=== PATIENT | female | born 1995 | race Caucasian/White ===

== ENCOUNTER 2017-08-14 02:24 | Emergency (ER) | payer MEDICAID ==
[~2017-08-14 02:24] MED LIST changes: -ABILIF5PT PO
[2017-08-14] MEDS ORDERED: ABILIF5PT PO (02:36)
[2017-08-14] MEDS ORDERED: METOPROLOL TART 5 MG/5 ML VIAL IVP ONE (02:40)
[2017-08-14] MEDS ORDERED: LORazepam 2 MG/ML VIAL IVP ONE (02:40)
--- NOTE | 2017-08-14 02:44 | EKG ---
FACILITY: [facility] - [place] PATIENT NAME: LIZBETH BARAJAS : [id number] MR: [id number] V: [id number] EXAM DATE: ORDERING PHYSICIAN: BRYN LAMB TECHNOLOGIST: Sanket Wood Reason : Blood Pressure : / mmHG Vent. Rate : 117 BPM Atrial Rate : 117 BPM P-R Int : 130 ms QRS Dur : 084 ms QT Int : 340 ms P-R-T Axes : 046 026 023 degrees QTc Int : 474 ms Sinus tachycardia Possible Inferior infarct , age undetermined Abnormal ECG No previous ECGs available Confirmed by AMERICO GUSTAFSON ([id number]) on 08/14/2017 6:35:38 AM Referred By: Confirmed By:AMERICO GUSTAFSON
--- NOTE | 2017-08-14 03:15 | ER Report ---
History and Physical Time Seen By MD: 02:27 Hx. of Stated Complaint: PATIENT STARTED FEELING LIKE SHE WAS HAVING IRREGULAR HEART RATE AND FLUTTERING IN HER CHEST THAT STARTED AROUND 0000. HPI/ROS CHIEF COMPLAINT: Fast heart rate HISTORY OF PRESENT ILLNESS: 22-year-old female with a history of autism was brought in by EMS from home complaining of fast heart rate since midnight. She notes palpitations and feels out of sorts. She denies being under stress or recent illness. She's had no nausea or vomiting, although she admits she vomited yesterday. She is on numerous psychiatric medications. She notes no diaphoresis, nausea, fever, chills, headache or visual changes. She denies leg swelling or calf pain. Patient does take control pills. REVIEW OF SYSTEMS: Respiratory: No cough, no dyspnea. Cardiovascular: No chest pain, no palpitations. Gastrointestinal: No vomiting, no abdominal pain. Musculoskeletal: No back pain. Allergies: Coded Allergies: No Known Drug Allergies (Unverified , 08/14/17) Home Meds Reported Medications Aripiprazole (ABILIFY) 5 Mg Tablet, 5 MG PO QDAY, #10 TAB 08/14/17 Omeprazole Magnesium (PRILOSEC OTC) 20 Mg Tablet.dr, 1 TAB PO QDAY, TAB 08/07/15 Norgestimate-Ethinyl Estradiol (ORTHO TRI-CYCLEN LO) 1 Each Tablet, 1 EACH PO DAILY 08/07/15 Risperidone (RISPERDAL) 2 Mg Tablet, 1 MG PO DAILY 08/07/15 Citalopram Hydrobromide (CELEXA) 40 Mg Tablet, 40 MG PO QDAY, #5 TAB 08/07/15 Hx Smoking: No Exposure to Second Hand Smoke?: Yes (PARENTS) Hx Substance Use Disorder: No Hx Alcohol Use: No Constitutional Vital Sign - Last 24 Hours 08/14/17 08/14/17 08/14/17 08/14/17 02:27 02:34 02:39 02:44 Temp 99.2 Pulse 120 120 116 111 Resp 19 18 13 6 B/P (MAP) 136/73 Pulse Ox 96 96 95 95 O2 Delivery Room Air 08/14/17 08/14/17 08/14/17 08/14/17 02:49 02:54 02:59 03:00 Pulse 112 131 113 Resp 11 10 14 B/P (MAP) 132/78 (96) Pulse Ox 96 95 08/14/17 08/14/17 08/14/17 08/14/17 03:04 03:09 03:14 03:24 Pulse 124 126 113 ??? Resp 13 32 10 Pulse Ox 94 92 92 94 08/14/17 08/14/17 08/14/17 08/14/17 03:29 03:30 03:44 03:49 Pulse 97 93 97 Resp 18 17 17 B/P (MAP) 124/73 (90) 08/14/17 08/14/17 08/14/17 08/14/17 03:54 03:59 04:00 04:09 Pulse 93 93 96 Resp 22 24 18 B/P (MAP) 133/68 (89) Physical Exam General Appearance: The patient is alert, has no immediate need for airway protection and no current signs of toxicity.. Vital signs stable, tachycardic to 120s. Vital signs stable, afebrile, pulse ox normal HEENT: Pupils equal and round no injection. TMs normal, oropharynx without redness or exudate Respiratory: Chest is non tender, lungs are clear to auscultation. Cardiac: regular rate and rhythm, no murmur Gastrointestinal: Abdomen is soft and non tender, no masses, bowel sounds normal. Musculoskeletal: Neck: Neck is supple and non tender. Extremities have full range of motion and are non tender. Skin: No rashes or lesions. DIFFERENTIAL DIAGNOSIS: After history and physical exam differential diagnosis was considered for palpitations, tachycardia, anxiety, sympathomimetic use Medical Decision Making Data Points Result Diagram: 08/14/17 03108/14/17 0310 Laboratory Hematology Test 08/14/17 03:10 Red Blood Count 5.24 M/uL (4.17-5.56) Mean Corpuscular Volume 77.3 fL (80.0-96.0) Mean Corpuscular Hemoglobin 25.9 pg (26.0-33.0) Mean Corpuscular Hemoglobin Concent 33.5 g/dL (32.0-36.0) Red Cell Distribution Width 15.3 % (11.5-14.5) Mean Platelet Volume 7.7 fL (7.2-11.1) Neutrophils (%) (Auto) 61.7 % (39.4-72.5) Lymphocytes (%) (Auto) 29.2 % (17.6-49.6) Monocytes (%) (Auto) 7.0 % (4.1-12.4) Eosinophils (%) (Auto) 1.5 % (0.4-6.7) Basophils (%) (Auto) 0.6 % (0.3-1.4) Nucleated RBC Relative Count (auto) 0.0 /100WBC Neutrophils # (Auto) 7.0 K/uL (2.0-7.4) Lymphocytes # (Auto) 3.3 K/uL (1.3-3.6) Monocytes # (Auto) 0.8 K/uL (0.3-1.0) Eosinophils # (Auto) 0.2 K/uL (0.0-0.5) Basophils # (Auto) 0.1 K/uL (0.0-0.1) Nucleated RBC Absolute Count (auto) 0.01 K/uL D-Dimer Quantitative (PE/DVT) < 0.27 ug/ml (0-0.50) Sodium Level 137 mmol/L (137-145) Potassium Level 3.5 mmol/L (3.5-5.0) Chloride Level 102 mmol/L (98-107) Carbon Dioxide Level 23 mmol/L (22-31) Blood Urea Nitrogen 11 mg/dl (7-18) Creatinine 0.60 mg/dl (0.52-1.04) Glomerular Filtration Rate Calc > 60.0 Random Glucose 109 mg/dl (75-110) Calcium Level 8.8 mg/dl (8.4-10.2) Total Bilirubin 0.2 mg/dl (0.2-1.3) Aspartate Amino Transf (AST/SGOT) 16 U/L (0-35) Alanine Aminotransferase (ALT/SGPT) 37 U/L (0-56) Alkaline Phosphatase 128 U/L (0-126) Troponin I < 0.012 ng/ml Total Protein 7.4 gm/dl (6.3-8.2) Albumin 3.9 g/dl (3.5-5.0) Thyroid Stimulating Hormone (TSH) 5.75 uIU/ml (0.46-4.68) Chemistry Test 08/14/17 03:10 White Blood Count 11.4 k/uL (4.5-11.0) Red Blood Count 5.24 M/uL (4.17-5.56) Hemoglobin 13.6 g/dL (12.0-16.0) Hematocrit 40.5 % (34.0-47.0) Mean Corpuscular Volume 77.3 fL (80.0-96.0) Mean Corpuscular Hemoglobin 25.9 pg (26.0-33.0) Mean Corpuscular Hemoglobin Concent 33.5 g/dL (32.0-36.0) Red Cell Distribution Width 15.3 % (11.5-14.5) Platelet Count 317 K/uL (150-450) Mean Platelet Volume 7.7 fL (7.2-11.1) Neutrophils (%) (Auto) 61.7 % (39.4-72.5) Lymphocytes (%) (Auto) 29.2 % (17.6-49.6) Monocytes (%) (Auto) 7.0 % (4.1-12.4) Eosinophils (%) (Auto) 1.5 % (0.4-6.7) Basophils (%) (Auto) 0.6 % (0.3-1.4) Nucleated RBC Relative Count (auto) 0.0 /100WBC Neutrophils # (Auto) 7.0 K/uL (2.0-7.4) Lymphocytes # (Auto) 3.3 K/uL (1.3-3.6) Monocytes # (Auto) 0.8 K/uL (0.3-1.0) Eosinophils # (Auto) 0.2 K/uL (0.0-0.5) Basophils # (Auto) 0.1 K/uL (0.0-0.1) Nucleated RBC Absolute Count (auto) 0.01 K/uL D-Dimer Quantitative (PE/DVT) < 0.27 ug/ml (0-0.50) Glomerular Filtration Rate Calc > 60.0 Calcium Level 8.8 mg/dl (8.4-10.2) Total Bilirubin 0.2 mg/dl (0.2-1.3) Aspartate Amino Transf (AST/SGOT) 16 U/L (0-35) Alanine Aminotransferase (ALT/SGPT) 37 U/L (0-56) Alkaline Phosphatase 128 U/L (0-126) Troponin I < 0.012 ng/ml Total Protein 7.4 gm/dl (6.3-8.2) Albumin 3.9 g/dl (3.5-5.0) Thyroid Stimulating Hormone (TSH) 5.75 uIU/ml (0.46-4.68) Coagulation Test 08/14/17 03:10 D-Dimer Quantitative (PE/DVT) < 0.27 ug/ml EKG/Imaging EKG Interpretation 12 lead EK Rhythm: Sinus tachycardia, rate 117 [place]: normal QRS: ? Inferior Q waves in [address] segments: normal, no old EKGs for comparison ED Course/Re-evaluation Clinical Indication for ER IV: IV Access ED Course Patient was admitted to an examination room. H&P was done. The dental diagnoses was considered. Patient with palpitations and racing heart. She was brought in by EMS. She has sinus tachycardia on the monitor, rate of 120 bpm. She denies anxiety or stressors. She states she was getting ready for bed when the symptoms commenced. She's never had symptoms like this before. She denies caffeine or stimulants. She takes numerous psychiatric medications. Diagnostic evaluation is unremarkable. She is treated with IV Ativan and metoprolol 5 mg on observation. After one hour, her heart rate is in the 90s. She feels much better. She is advised to follow-up with her primary care physician next week. She is advised to continue all of her medications as prescribed. Decision to Disposition Date: Aug 14, 2017 Decision to Disposition Time: 03:25 Depart Departure Latest Vital Signs Vital Signs Date Time Temp Pulse Resp B/P (MAP) Pulse Ox O2 Delivery O2 Flow Rate FiO2 08/14/17 04:09 96 18 08/14/17 04:00 133/68 (89) 08/14/17 03:24 94 08/14/17 02:27 99.2 Room Air Impression: Primary Impression: Heart palpitations Additional Impression: Mood disorder Condition: Improved Disposition: HOME OR SELF-CARE Patient Instructions: Palpitations (ED) Additional Instructions: Follow-up with your primary care if unimproved in 3-5 days Problem Qualifiers BRYN LAMB DO Aug 14, 2017 03:15
[2017-08-14 03:26] LABS: PLATELET COUNT, AUTOMATED 317 K/uL (150-450)
[2017-08-14 04:00] VITALS: BP 133/68
== END 2017-08-14 04:22 | disposition home or self-care (01) ==
LOC: ER 02:26
DX: F39 Unspecified mood [affective] disorder (principal); R00.2 Palpitations
CPT/HCPCS: 36415; 84443; 84484; 85025; 85379; 93005; 96374; 96375; 99284; J2060; J3490; 82040; 82247; 82310; 82374; 82435; 82565; 82947; 84075; 84132; 84155; 84295; 84450; 84460; 84520

== ENCOUNTER → 2017-08-14 | Outpatient (CLI) | payer MEDICAID ==
[~2017-08-14] MED LIST: ABILIF5PT PO; CITA-157 PO; NORG1TAB96 PO; OMEP-218 PO; RISP-34 PO
== END ==
LOC: AMB 02:07
PROVIDERS: ATTEND Nurse Practitioner
DX: R00.0 Tachycardia, unspecified (principal); F41.9 Anxiety disorder, unspecified
CPT/HCPCS: A0425; A0427

== ENCOUNTER → 2017-08-23 | Outpatient (CLI) | payer MEDICAID ==
[~2017-08-23] MED LIST changes: +ABILIF5PT PO
--- NOTE | 2017-08-27 16:46 | RT HOLTER TEST ---
FACILITY: [facility] - [place] PATIENT NAME: LIZBETH BARAJAS : [id number] MR: [id number] V: [id number] EXAM DATE: ORDERING PHYSICIAN: ANN MARIE RIVERA TECHNOLOGIST: CLAUDIO Hook-up date: 2017-08-23 13:13:00 Duration: 47:43:00 Test Indications: PALPITATIONS Medications: N/A 367825 QRS complexes 1415 Ventricular ectopics which represent <1 % of total QRS comp. * Supraventricular ectopics which represent % of total QRS comp. * Paced QRS complexes which represent % of total QRS comp. VENTRICULAR ECTOPY 1407 Isolated 0 Bigeminal Cycles 4 Couplets 0 Runs 0 Beats in Runs * Beats LONGEST at * BPM at :: -- * Beats FASTEST at * BPM at :: -- SUPRAVENTRICULAR ECTOPY * Isolated * Couplets * Runs * Beats in Runs * Beats LONGEST at * BPM at :: -- * Beats FASTEST at * BPM at :: -- HEART RATES 57 MIN at 23:36:13 2017-08-24 88 AVG 130 MAX at 00:53:31 2017-08-25 LONGEST RR 1.264 secs at 03:42:48 2017-08-24 S-T LEVELS Channel 1 -12.800 mm MIN at 13:13:00 2017-08-23 -12.800 mm MAX at 13:13:00 2017-08-23 Channel 2 -12.800 mm MIN at 13:13:00 2017-08-23 -12.800 mm MAX at 13:13:00 2017-08-23 Channel 3 -12.800 mm MIN at 13:13:00 2017-08-23 -12.800 mm MAX at 13:13:00 2017-08-23 There were no reported symptoms. The patient was in a sinus rhythm with occasional ventricular ecto py. Confirmed by ULISES BHAGAT ([id number]) on 08/27/2017 2:18:10 PM Referred By: Overread By: ULISES BHAGAT
== END ==
LOC: RESP 07:25
PROVIDERS: ATTEND Family Medicine
DX: R00.2 Palpitations (principal)
CPT/HCPCS: 93225; 93226

== ENCOUNTER → 2019-01-02 | Outpatient (CLI) | payer MEDICAID | LOC: LAB 09:12 | PROVIDERS: ATTEND Family Medicine | DX: B82.0 Intestinal helminthiasis, unspecified (principal) | CPT/HCPCS: 87177 ==